=== PATIENT | female | born 1985 | race Caucasian/White ===

== ENCOUNTER 2017-04-18 17:26 | Emergency (ER) | payer MEDICAID, OTHER ==
[2017-04-18 17:52] VITALS: BMI 34.1
[2017-04-18] MEDS ORDERED: Sodium Chloride 0.9% 1,000 ML IV STA (17:52)
[2017-04-18 17:54] VITALS: TEMP 97.7
--- NOTE | 2017-04-18 18:00 | ED PDOC ---
Arrival/HPI - General Chief Complaint: Abdominal Pain Time Seen by Provider: 04/18/17 17:47 Historian: Patient - History of Present Illness Narrative History of Present Illness (Text): 04/18/17 17:54 31yo morbidly obese female with PMhx of PCOS who present with 3hrs history of left mid abdominal pain that radiates to her pelvic with associated nausea. States she took one tab of cipro for possible UTI. She denies vomiting, diarrhea , fever, back pain, urinary frequency, dysuria, hematuria, fever, sick contact, any other complaint. Past Medical History - Provider Review Nursing Documentation Reviewed: Yes - Infectious Disease Hx of Infectious Diseases: None - Reproductive Menopause: No - Psychiatric Hx Substance Use: No - Anesthesia Hx Anesthesia: No - Suicidal Assessment Feels Threatened In Home Enviroment: No Family/Social History - Physician Review Nursing Documentation Reviewed: Yes Family/Social History: Unknown Family HX Smoking Status: Never Smoked Hx Alcohol Use: No Hx Substance Use: No Allergies/Home Meds Allergies/Adverse Reactions: Allergies No Known Allergies Allergy (Verified 04/18/17 16:04) Home Medications: Home Meds Medication Instructions Recorded Confirmed MetFORMIN [glucOPHAGE] 750 mg PO PRN 04/18/17 04/18/17 Review of Systems - Physician Review All systems were reviewed & negative as marked: Yes - Review of Systems Constitutional: Normal Eyes: Normal ENT: Normal Respiratory: Normal Cardiovascular: Normal Gastrointestinal: Abdominal Pain, Nausea. absent: Constipation, Diarrhea, Vomiting, Hematochezia, Hematemesis Genitourinary Female: Normal Musculoskeletal: Normal Skin: Normal Neurological: Normal Endocrine: Normal Hemo/Lymphatic: Normal Psychiatric: Normal Physical Exam Vital Signs Reviewed: Yes Vital Signs Temp Pulse Resp BP Pulse Ox 04/18/17 21:31 70 16 124/87 100 04/18/17 17:49 97.7 F 68 18 123/74 98 Temperature: Afebrile Blood Pressure: Normal Pulse: Regular Respiratory Rate: Normal Appearance: Positive for: Well-Appearing, Non-Toxic, Comfortable Pain Distress: None Mental Status: Positive for: Alert and Oriented X 3 - Systems Exam Head: Present: Atraumatic, Normocephalic Pupils: Present: PERRL Extroacular Muscles: Present: EOMI Conjunctiva: Present: Normal Mouth: Present: Moist Mucous Membranes Neck: Present: Normal Range of Motion Respiratory/Chest: Present: Clear to Auscultation, Good Air Exchange. No: Respiratory Distress, Accessory Muscle Use Cardiovascular: Present: Regular Rate and Rhythm, Normal S1, S2. No: Murmurs Abdomen: Present: Normal Bowel Sounds, Other (Soft). No: Tenderness, Distention , Peritoneal Signs, Rebound, Guarding, McBurney's Point Tender, Rovsing's Sign Present Back: Present: Normal Inspection Upper Extremity: Present: Normal Inspection. No: Cyanosis, Edema Lower Extremity: Present: Normal Inspection. No: Edema Neurological: Present: GCS=15, CN II-XII Intact, Speech Normal Skin: Present: Warm, Dry, Normal Color. No: Rashes Psychiatric: Present: Alert, Oriented x 3, Normal Insight, Normal Concentration Medical Decision Making ED Course and Treatment: 04/19/17 00:02 Pt presented for stated history. Her pain resolved in ED on re evaluation. Lab was reviewed. Pt is on Cipro currently at home. Abdominal/Pelvic CT IMPRESSION: 1. Bladder calcification, likely recently passed left ureteral calculus. 2. Incidental/non-acute findings are described above. Result was DW the pt. she was DC and advised to continue with the abx. Referred to urologist. TRT ED for any new or worsening symptoms - Lab Interpretations Lab Results: 04/18/17 18:20 04/18/17 18:20 Lab Results 04/18/17 18:20: Sodium 139, Potassium 4.0, Chloride 105, Carbon Dioxide 21, Anion Gap 17, BUN 13, Creatinine 0.7, Est GFR ( Amer) > 60, Est GFR (Non- Af Amer) > 60, Random Glucose 112 H, Calcium 9.7, Total Bilirubin 0.3, AST 24, ALT 28, Alkaline Phosphatase 117, Total Protein 7.9, Albumin 4.2, Globulin 3.6, Albumin/Globulin Ratio 1.2, Lipase 35 04/18/17 18:20: Urine Color Yellow, Urine Appearance Sl cloudy, Urine pH 6.5, Ur Specific [place] >= 1.030, Urine Protein 30 H, Urine Glucose (UA) Negative, Urine Ketones Trace H, Urine Blood Small H, Urine Nitrate Negative, Urine Bilirubin Negative, Urine Urobilinogen 0.2, Ur Leukocyte Esterase Negative, Urine RBC 0 - 2, Urine WBC 2 - 5, Ur Epithelial Cells 10 - 12, Urine Bacteria Mod 04/18/17 18:20: PT 11.4, INR 1.00, APTT 30.8 04/18/17 18:20: WBC 11.9 H, RBC 4.43, Hgb 11.3 L, Hct 35.9 L, MCV 81.0, MCH 25.5 , MCHC 31.5, RDW 14.7 H, Plt Count 250, MPV 10.9, Gran % 85.9 H, Lymph % (Auto) 10.7 L, [place] % (Auto) 3.0, Eos % (Auto) 0.2 L, Baso % (Auto) 0.2, Gran # 10.18 H , Lymph # (Auto) 1.3, [place] # (Auto) 0.4, Eos # (Auto) 0.0, Baso # (Auto) 0.02 - RAD Interpretation Radiology Orders: 04/18/17 18:45 ABD & PELVIS W/O PO OR IV CONT [CT] Stat - Medication Orders Current Medication Orders: Discontinued Medications Famotidine (Pepcid) 20 mg IVP STAT STA Stop: 04/18/17 17:53 Last Admin: 04/18/17 18:27 Dose: 20 mg IVP Administration Document 04/18/17 18:27 HI (Rec: 04/18/17 18:27 [id number] Charges for Administration # of IVP Administrations 1 Sodium Chloride (Sodium Chloride 0.9%) 1,000 mls @ 1,000 mls/hr IV .Q1H STA Stop: 04/18/17 18:51 Last Admin: 04/18/17 18:27 Dose: 1,000 mls/hr eMAR Start Stop Document 04/18/17 18:27 HI (Rec: 04/18/17 18:27 [place] [id number]) Intravenous Solution Start Date 04/18/17 Start Time 18:27 Ketorolac Tromethamine (Toradol) 30 mg IVP STAT STA Stop: 04/18/17 17:53 Last Admin: 04/18/17 18:27 Dose: 30 mg MAR Pain Assessment Document 04/18/17 18:27 HI (Rec: 04/18/17 18:27 [id number] Pain Reassessment Is this a pain reassessment? No Presence of Pain Presence of Pain Yes Location Pain Location Body Site Abdomen IVP Administration Document 04/18/17 18:27 HI (Rec: 04/18/17 18:27 [place] [id number]) Charges for Administration # of IVP Administrations 1 Disposition/Present on Arrival - Present on Arrival Any Indicators Present on Arrival: No History of DVT/PE: No History of Uncontrolled Diabetes: No Urinary Catheter: No History of Decub. Ulcer: No History Surgical Site Infection Following: None - Disposition Have Diagnosis and Disposition been Completed?: Yes Diagnosis: Abdominal pain Disposition: HOME/ ROUTINE Disposition Time: 21:05 Patient Plan: Discharge Condition: STABLE Discharge Instructions (ExitCare): Abdominal Pain (ED) Additional Instructions: Follow up with your doctor Return to ED for any new or worsening symptoms Prescriptions: Ibuprofen [Motrin Tab] 800 mg PO Q6 #20 tab Referrals: Xu Hodge MD [Primary Care Provider] - Follow up with primary Lashell Foote MD [Staff Provider] - Follow up with primary Forms: [employer] (Lithuanian)
[2017-04-18 18:38] LABS: BASO # 0.02 K/mm3 (0.0-2.0); BASO % 0.2 % (0.0-3.0); EOS % 0.2 % (1.5-5.0); GRAN # 10.18 (1.4-6.5); GRAN % 85.9 % (50.0-68.0); HEMOGLOBIN 11.3 g/dL (12.0-16.0); LYMPH # 1.3 (1.2-3.4); LYMPH % 10.7 % (22.0-35.0); MEAN CORPUSCULAR HEMOGLOBIN 25.5 pg (25.0-35.0); MEAN CORPUSCULAR HGB CONC 31.5 g/dl (31.0-37.0); MEAN PLATELET VOLUME 10.9 fl (7.0-11.0); MONO # 0.4 (0.1-0.6); PH,URINE 6.5 (4.7-8.0); RBC 4.43 10^6/uL (3.5-6.1); RED CELL DISTRIBUTION WIDTH 14.7 % (11.5-14.5); URINE BILIRUBIN NEGATIVE (NEGATIVE); URINE BLOOD SMALL (NEGATIVE); URINE GLUCOSE (UA) NEGATIVE (NEGATIVE); URINE LEUKOCYTE ESTERASE NEGATIVE Leu/uL (NEGATIVE); URINE NITRATE NEGATIVE (NEGATIVE); URINE PROTEIN 30 mg/dL (<30 mg/dL); URINE UROBILINOGEN 0.2 E.U./dL (<1 E.U./dL); WHITE BLOOD COUNT 11.9 10^3/ul (4.5-11.0)
[2017-04-18 18:40] LABS: URINE APPEARANCE SL CLOUDY (CLEAR); URINE COLOR YELLOW (YELLOW)
[2017-04-18 18:44] LABS: ALB/GLOB RATIO 1.2 (1.1-1.8); ALBUMIN 4.2 g/dL (3.0-4.8); ALT/SGPT 28 U/L (7-56); AST/SGOT 24 U/L (14-36); BLOOD UREA NITROGEN 13 mg/dL (7-21); CALCIUM 9.7 mg/dL (8.4-10.5); GFR AFRICAN-AMERICAN > 60; GFR NON-AFRICAN AMERICAN > 60; LIPASE 35 U/L (23-300)
[2017-04-18 18:45] LABS: PARTIAL THROMBOPLASTIN TIME 30.8 Seconds (25.1-36.5); PROTHROMBIN TIME 11.4 SECONDS (9.4-12.5)
[2017-04-18 18:53] LABS: URINE RBC 0 - 2 /hpf (0-2)
[2017-04-18 18:54] LABS: URINE BACTERIA MOD (NEG)
--- NOTE | 2017-04-18 20:44 | CT ---
EXAM: CT Abdomen and Pelvis Without Intravenous Contrast CLINICAL HISTORY: 31 years old, female; Pain; Abdominal pain TECHNIQUE: Axial computed tomography images of the abdomen and pelvis without intravenous contrast. All CT scans at this facility use one or more dose reduction techniques, viz.: automated exposure control; ma/kV adjustment per patient size (including targeted exams where dose is matched to indication; i.e. head); or iterative reconstruction technique. Coronal and sagittal reformatted images were created and reviewed. COMPARISON: No relevant prior studies available. FINDINGS: Limitations: Lack of intravenous contrast. Lower thorax: No acute findings. ABDOMEN: Liver: Unremarkable. Gallbladder and bile ducts: No calcified stones. No ductal dilation. Pancreas: Unremarkable. No ductal dilation. Spleen: No splenomegaly. Adrenals: No mass. Kidneys and ureters: Minimal stranding about LEFT kidney. No renal calculi. Mild pelvocaliectasis of LEFT kidney. Mildly dilated LEFT ureter. Slightly increased intraluminal density of left renal pelvis and ureter. Stomach and bowel: Segmental areas of probable underdistention of colon. No definite mural thickening. No obstruction. Appendix: Normal caliber. No inflammation. PELVIS: Bladder: 0.2 x 0.2 x 0.2 cm calcification along posterior wall. Reproductive: Unremarkable as visualized. ABDOMEN and PELVIS: Intraperitoneal space: No significant fluid collection. No free air. Bones/joints: Chronic L5 pars defects. No acute fracture. Soft tissues: Tiny umbilical hernia containing fat. Vasculature: Circumaortic LEFT renal vein. No aneurysm. Lymph nodes: No pathologically enlarged lymph nodes. IMPRESSION: 1. Bladder calcification, likely recently passed left ureteral calculus. 2. Incidental/non-acute findings are described above.
[2017-04-18 21:31] VITALS: BP 124/87; PULSE 70; RESP 16; O2SAT 100
== END 2017-04-18 21:31 | disposition home or self-care (01) ==
LOC: ED 17:26
DX: R10.9 Unspecified abdominal pain (principal); E66.01 Morbid (severe) obesity due to excess calories
CPT/HCPCS: 74176; 80053; 81001; 83690; 85025; 85610; 85730; 96374; 96375; 99283; J1885; J7040